=== PATIENT | female | born 1960 | race Hispanic/Latino ===

== ENCOUNTER 2022-01-26 07:13 | Emergency (ER) | payer SELFPAY ==
[2022-01-26] MEDS ORDERED: LEVALBUTEROL 1.25 MG/3 ML NEB ONE (07:47)
[2022-01-26 08:10] LABS: Absolute Lymphocytes (CBC) 2.7 K/uL (0.7-4.9); Lymphocytes % 33.6 % (15.3-44.8); MCV 99.5 fL (80-100); MPV 8.2 fL (7.6-11.3); RBC Red Blood Cell Count 4.22 M/uL (3.86-4.86)
--- NOTE | 2022-01-26 08:19 | RAD REPORT ---
EXAM DESCRIPTION: RAD - Chest Single View - 01/26/2022 8:09 am CLINICAL HISTORY: Cough COMPARISON: No comparisons FINDINGS: Lines: None. Lungs: No evidence of edema or pneumonia. Pleural: No significant pleural effusions or pneumothorax. Cardiac: The heart size is within normal limits. Bones: No acute fractures. Other: IMPRESSION: No acute cardiopulmonary disease.
[2022-01-26 08:27] LABS: Protime INR 0.95
[2022-01-26 08:29] LABS: Potassium 3.6 mmol/L (3.5-5.1); Troponin High Sensitivity 4.4 pg/mL (<58.9)
--- NOTE | 2022-01-26 09:03 | EDPHYS ---
Physician Documentation [facility] Name: Sharri Kiran Age: 61 yrs Sex: Female : 1960 Arrival Date: 01/26/2022 Time: 07:16 Bed 12 Private MD: ED Physician Ashok Tvaeras HPI: 01/26 07:44 This 61 yrs old Female presents to ER via Ambulatory with complaints of rn Shortness Of Breath. 07:44 The patient has shortness of breath with light activity. Onset: The symptoms/episode rn began/occurred 3 day(s) ago. Duration: The symptoms are continuous. The patient's shortness of breath is aggravated by exertion, light activity, supine position, walking. Associated signs and symptoms: Pertinent positives: productive cough, Pertinent negatives: chest pain, dizziness, fever, hemoptysis. Severity of symptoms: At their worst the symptoms were moderate in the emergency department the symptoms are unchanged. The patient has not experienced similar symptoms in the past. The patient has not recently seen a physician. Historical: - Allergies: 07:20 No Known Allergies; ss - Home Meds: 07:20 metoprolol tartrate 50 mg Oral tab 1 tab 2 times per day [Active]; ss - PMHx: 07:20 Hypertension; ss - PSHx: 07:20 Hystserectomy; ss - Immunization history:: Client reports receiving the 2nd dose of the Covid vaccine. - Social history:: Smoking status: Patient denies any tobacco usage or history of. - Family history:: not pertinent. - Hospitalizations: : No recent hospitalization is reported. ROS: 07:44 Constitutional: Negative for fever, chills, and weight loss, Eyes: Negative for injury, rn pain, redness, and discharge, Neck: Negative for injury, pain, and swelling, Cardiovascular: Negative for chest pain, palpitations, and edema, Respiratory: + cough and sob Abdomen/GI: Negative for abdominal pain, nausea, vomiting, diarrhea, and constipation, Back: Negative for injury and pain, MS/Extremity: Negative for injury and deformity, Skin: Negative for injury, rash, and discoloration, Neuro: Negative for headache, weakness, numbness, tingling, and seizure. Exam: 07:44 Constitutional: This is a well developed, well nourished patient who is awake, alert, rn and in no acute distress. Head/Face: Normocephalic, atraumatic. ENT: no stridor Cardiovascular: Regular rate and rhythm. No pulse deficits. Respiratory: + diffuse wheezing bilaterally, No increased work of breathing, no retractions or nasal flaring. Abdomen/GI: Soft, non-tender Skin: Warm, dry MS/ Extremity: Pulses equal, no cyanosis. Neuro: Awake and alert, GCS 15 09:46 ECG was reviewed by the Attending Physician. rn Vital Signs: 07:20 BP 131 / 82; Pulse 99; Resp 17; Temp 97.2(TE); Pulse Ox 95% on R/A; Pain 0/10; ss 08:20 BP 139 / 85; Pulse 100; Resp 18; Pulse Ox 97% on R/A; Pain 0/10; mb8 09:24 BP 118 / 72; Pulse 88; Resp 16; Temp 98; Pulse Ox 97% ; Pain 0/10; mb8 MDM: 07:23 Patient medically screened. rn 09:00 Differential diagnosis: Anxiety Reaction asthma, Bronchitis CHF exacerbation, Chronic rn Obstructive Pulmonary Disease Myocardial Infarction pulmonary edema, Pulmonary Embolism reactive airway disease. Data reviewed: vital signs, nurses notes, lab test result(s), EKG, radiologic studies, plain films, and as a result, I will discharge patient. Counseling: I had a detailed discussion with the patient and/or guardian regarding: the historical points, exam findings, and any diagnostic results supporting the discharge/admit diagnosis, lab results, radiology results, the need for outpatient follow up, to return to the emergency department if symptoms worsen or persist or if there are any questions or concerns that arise at home. Response to treatment: the patient's symptoms have markedly improved after treatment, and as a result, I will discharge patient. Special discussion: I discussed with the patient/guardian in detail that at this point there is no indication for admission to the hospital. It is understood, however, that if the symptoms persist or worsen the patient needs to return immediately for re-evaluation. Based on the history and exam findings, there is no indication for further emergent testing or inpatient evaluation. I discussed with the patient/guardian the need to see the primary care provider for further evaluation of the symptoms. I discussed with the patient/guardian the need to see the vp sales for further evaluation of the symptoms. ED course: Pt improved, feels better, no acute findings on blood/ecg/cxr. D-dimer neg. Will dc home with inhaler/abx/steroids. Pt has hx of sanding exposure for > 20 years as well as second hand smoke exposure. Could be COPD/fibrosis. Had this discussion with patient, will f/u with pulmonology and return precautions given/understood.. 01/26 07:35 Order name: BMP; Complete Time: 08:53 rn 01/26 07:35 Order name: Blood Culture Adult (2) rn 01/26 07:35 Order name: CBC with Diff; Complete Time: 08:27 rn 01/26 07:35 Order name: D-Dimer; Complete Time: 08:53 rn 01/26 07:35 Order name: NT PRO-BNP; Complete Time: 08:53 rn 01/26 07:35 Order name: PT-INR; Complete Time: 08:53 rn 01/26 07:35 Order name: XRAY Chest (1 view); Complete Time: 08:27 rn 01/26 07:35 Order name: Ptt, Activated; Complete Time: 08:53 rn 01/26 07:35 Order name: Troponin HS; Complete Time: 08:53 rn 01/26 07:35 Order name: EKG; Complete Time: 07:36 rn 01/26 07:35 Order name: Flu; Complete Time: 08:53 rn 01/26 07:35 Order name: SARS-COV-2 RT PCR (Document "Date of Onset" if Symptomatic); Complete Time: rn 08:53 01/26 07:35 Order name: Cardiac monitoring; Complete Time: 07:36 rn 01/26 07:35 Order name: EKG - Nurse/Tech; Complete Time: 08:12 rn 01/26 07:35 Order name: IV Saline Lock; Complete Time: 08:12 rn 01/26 07:35 Order name: Labs collected and sent; Complete Time: 08:12 rn 01/26 07:35 Order name: O2 Per Protocol; Complete Time: 08:12 rn 01/26 07:35 Order name: O2 Sat Monitoring; Complete Time: 08:12 rn EC:46 Rate is 97 beats/min. Rhythm is regular. QRS Mission is Normal. FL interval is normal. QRS rn interval is normal. QT interval is normal. No Q waves. T waves are Normal. No ST changes noted. Clinical impression: Normal ECG. Interpreted by me. Reviewed by me. Administered Medications: 07:45 Drug: Xopenex (levalbuterol) 1.25 mg Route: Inhalation; 8 09:03 Follow up: Response: No adverse reaction; Marked relief of symptoms 8 09:20 Drug: SOLU-Medrol (methylPrednisoLONE) 125 mg Route: IVP; Site: right forearm; 8 09:23 Follow up: Response: No adverse reaction mb8 Disposition Summary: 01/26/22 09:03 Discharge Ordered Location: Home rn Problem: new rn Symptoms: have improved rn Condition: Stable rn Diagnosis - Dyspnea, unspecified rn - Wheezing rn Followup: rn - With: Christoph Burrows MD - When: As needed - Reason: Recheck today's complaints, Re-evaluation by your physician Discharge Instructions: - Discharge Summary Sheet rn - Shortness of Breath, Adult rn Forms: - Medication Reconciliation Form rn - Thank You Letter rn - Antibiotic journeyman plumber - Prescription Opioid Use rn Prescriptions: - albuterol sulfate 90 mcg/actuation Inhalation HFA aerosol inhaler - inhale 2 puff by INHALATION route every 4-6 hours; 1 Inhaler; Refills: 0, rn Product Selection Permitted - Prednisone 20 mg Oral Tablet - take 3 tablets by ORAL route once daily for 5 days; 15 tablet; Refills: 0, rn Product Selection Permitted - Zithromax Z-Bradley 250 mg Oral Tablet - take 1 tablet by ORAL route as directed for 5 days Day 1 - take two (2) tablets rn one time. Day 2, 3, 4 , 5 take one (1) tablet once daily.; 6 tablet; Refills: 0, Product Selection Permitted Signatures: Dispatcher [employer] Ashok Guadarrama MD MD rn Smirch, Shelby, RN RN ss Bates, Michael RN RN mb8
--- NOTE | 2022-01-26 09:03 | ER ---
Nurse's Notes [facility] Name: Sharri Kiran Age: 61 yrs Sex: Female : 1960 Arrival Date: 01/26/2022 Time: 07:16 Bed 12 Private MD: Diagnosis: Dyspnea, unspecified;Wheezing Presentation: 01/26 07:20 Chief complaint: Patient states: Shortness of breath that has been ongoing for "a ss couple of weeks. Denies fever. Pt states that she has felt like she has had some chest congestion. Coronavirus screen: Client denies travel out of the [place] in the last 14 days. Client presents with at least one sign or symptom that may indicate coronavirus-19. Ebola Screen: Patient denies exposure to infectious person. Patient denies travel to an Ebola-affected area in the 21 days before illness onset. Initial Sepsis Screen: Does the patient meet any 2 criteria? No. Patient's initial sepsis screen is negative. Does the patient have a suspected source of infection? No. Patient's initial sepsis screen is negative. Risk Assessment: Do you want to hurt yourself or someone else? Patient reports no desire to harm self or others. Onset of symptoms was December 31, 2021. 07:20 Method Of Arrival: Ambulatory ss 07:20 Acuity: ALEXA 3 ss Triage Assessment: 07:29 Respiratory: Reports shortness of breath at rest on exertion cough that is mb8 non-productive, Onset: The symptoms/episode began/occurred per patient, last several weeks, the patient has mild shortness of breath. Historical: - Allergies: 07:20 No Known Allergies; ss - Home Meds: 07:20 metoprolol tartrate 50 mg Oral tab 1 tab 2 times per day [Active]; ss - PMHx: 07:20 Hypertension; ss - PSHx: 07:20 Hystserectomy; ss - Immunization history:: Client reports receiving the 2nd dose of the Covid vaccine. - Social history:: Smoking status: Patient denies any tobacco usage or history of. - Family history:: not pertinent. - Hospitalizations: : No recent hospitalization is reported. Screenin:28 Abuse screen: Denies threats or abuse. Denies injuries from another. Nutritional mb8 screening: No deficits noted. Tuberculosis screening: No symptoms or risk factors identified. Fall Risk None identified. Assessment: 07:27 General: Appears in no apparent distress. comfortable, Behavior is calm, cooperative, mb8 appropriate for age. Pain: Denies pain. Cardiovascular: No deficits noted. Respiratory: Airway is patent Respiratory effort is even, unlabored, Respiratory pattern is regular, symmetrical, Breath sounds with wheezes bilaterally. 08:15 Cardiovascular: Rhythm is. mb8 08:21 Cardiovascular: Rhythm is sinus rhythm. Respiratory: Reports cough that is productive. mb8 Vital Signs: 07:20 BP 131 / 82; Pulse 99; Resp 17; Temp 97.2(TE); Pulse Ox 95% on R/A; Pain 0/10; ss 08:20 BP 139 / 85; Pulse 100; Resp 18; Pulse Ox 97% on R/A; Pain 0/10; mb8 09:24 BP 118 / 72; Pulse 88; Resp 16; Temp 98; Pulse Ox 97% ; Pain 0/10; mb8 Vitals: 08:20 Cardiac Rhythm Assessment Regular Sinus rhythm. mb8 ED Course: 07:16 Patient arrived in ED. rg4 07:20 Arm band placed on left wrist. ss 07:22 Triage completed. ss 07:23 Ashok Taveras MD is Attending Physician. rn 07:23 Ishaan Mahmood RN is Primary Nurse. mb8 07:28 Patient has correct armband on for positive identification. Bed in low position. Call mb8 light in reach. Side rails up X2. Pulse ox on. NIBP on. 07:29 No provider procedures requiring assistance completed. mb8 07:50 COVID swab sent to lab. Flu and/or RSV swab sent to lab. X-ray(s) taken. mb8 07:52 Inserted saline lock: 20 gauge in right forearm, using aseptic technique. Blood mb8 collected. 07:52 First set of blood cultures drawn right arm. mb8 08:10 XRAY Chest (1 view) In Process Unspecified. EDMS 08:10 Second set of blood cultures drawn left arm. mb8 09:02 Christoph Burrows MD is Referral Physician. rn 09:23 IV discontinued, intact, bleeding controlled, No redness/swelling at site. Pressure mb8 dressing applied. Administered Medications: 07:45 Drug: Xopenex (levalbuterol) 1.25 mg Route: Inhalation; mb8 09:03 Follow up: Response: No adverse reaction; Marked relief of symptoms mb8 09:20 Drug: SOLU-Medrol (methylPrednisoLONE) 125 mg Route: IVP; Site: right forearm; mb8 09:23 Follow up: Response: No adverse reaction mb8 Medication: 07:28 VIS not applicable for this client. mb8 Outcome: 09:03 Discharge ordered by . rn 09:23 Discharged to home ambulatory. mb8 09:23 Condition: stable 09:23 Discharge instructions given to patient, Instructed on discharge instructions, follow up and referral plans. no drinking with medication, medication usage, Demonstrated understanding of instructions, follow-up care, medications, Prescriptions given X 3. 09:24 Patient left the ED. mb8 Signatures: Dispatcher [employer] EDMS Ashok Taveras MD MD rn Smirch, Shelby, RN RN ss Garcia, Rubi 4 Ishaan Mahmood RN RN mb8
[2022-01-26] MEDS ORDERED: METHYLPREDNISOLONE 125 MG INJ ONE (09:25)
[2022-01-26 10:02] VITALS: O2SAT 97
[2022-01-26 10:04] VITALS: BP 118/72; TEMP 98
--- NOTE | 2022-01-27 12:51 | EKG ---
Test Date: 2022-01-26 Test Time: 08:03:08 Schedule Announcer: SHAWN MEASUREMENT RESULTS: Intervals: Rate: 97 DE: 148 QRSD: 84 QT: 384 QTc: 487 Pelican: P: 32 DE: 148 QRS: 24 T: 40 INTERPRETIVE STATEMENTS: Normal sinus rhythm with sinus arrhythmia Normal ECG Compared to ECG 10/25/2004 11:40:00 No significant changes Electronically Signed On 01-27-22 12:49:38 CDT by Leonardo Puentes
== END 2022-01-26 09:24 | disposition home or self-care (01) ==
LOC: ER 07:13
DX: R06.00 Dyspnea, unspecified (principal); R06.2 Wheezing; Z20.822 Contact with and (suspected) exposure to COVID-19; I10 Essential (primary) hypertension
CPT/HCPCS: 36415; 71045; 80048; 83880; 84484; 85025; 85379; 85610; 85730; 87040; 87804; 93005; 96374; 99285; J2930; U0003

== ENCOUNTER 2023-11-27 20:36 | Emergency (ER) | payer SELFPAY ==
[2023-11-27 21:34] LABS: Absolute Basophils 0.1 K/uL (0-0.5); Absolute Eosinophils 0.5 K/uL (0-0.5); Absolute Lymphocytes (CBC) 4.2 K/uL (0.7-4.9); Absolute Monocytes 1.4 K/uL (0.1-1.3); Absolute Neutrophil 9.8 K/uL (1.8-8.0); Basophils % 0.8 % (0-1.3); Hematocrit 44.8 % (36.0-45.0); Hemoglobin 15.3 g/dL (12.0-15.0); Lymphocytes % 26.2 % (15.3-44.8); MCHC 34.2 g/dL (32.0-36.0); MCV 102.2 fL (80-100); MPV 8.9 fL (7.6-11.3); Monocytes % 8.9 % (3.3-12.3); Neutrophils % 61.1 % (41.7-73.7); Nucleated Red Blood Cells % 0.1 % (0-0); Platelets 261 thou/uL (152-406); RBC Red Blood Cell Count 4.38 M/uL (3.86-4.86); Red Cell Distribution Width 13.7 % (12.1-15.2)
[2023-11-27 21:41] LABS: Specific Gravity 1.016 (1.005-1.030); Sqamous Epithelial <5 /HPF (None Seen); Urine Bacteria 20-50 /HPF (<20); Urine Bilirubin NEGATIVE (Negative); Urine Blood Trace (Negative); Urine Clarity Extremely Turbid (Clear); Urine Color Light-Orange (Yellow); Urine Crystals Unidentified Few /HPF (None Seen); Urine Culture Reflex Order REFLEXED; Urine Glucose NEGATIVE (Negative); Urine Ketones NEGATIVE (Negative); Urine Microscopic Reflex YN ORDER UMIC; Urine Nitrite 2+ (Negative); Urine Protein 2+ (Negative); Urine Urobilinogen Normal (Normal); Urine WBC >50 /HPF (<5); Urine WBC Clump Few /HPF (None Seen); Urine pH 8.5 (5.0-7.0)
[2023-11-27 21:52] LABS: Albumin 3.8 g/dL (3.4-5.0); Albumin/Globulin Ratio 0.9 (1.1-1.8); Anion Gap 10.8 mEq/L (5.0-15.0); Bilirubin Total 0.3 mg/dL (0.2-1.0); Globulin 4.2 g/dL (2.3-3.5); Potassium 3.8 mEq/L (3.5-5.1)
[2023-11-27] MEDS ORDERED: FAMOTIDINE 20 MG/2 ML VIAL IV ONE (21:57)
[2023-11-27] MEDS ORDERED: ONDANSETRON 4 MG/2 ML VIAL ONE (21:57)
[2023-11-27] MEDS ORDERED: NA CHLORIDE 0.9% 1,000 ML ONE ×2 (21:57→23:11)
[2023-11-27] MEDS ORDERED: Meropenem 1000 MG/VIAL IV ONE (22:07)
[2023-11-27] MEDS ORDERED: NA CHLORIDE 0.9% 100 ML ONE (22:08)
[2023-11-27] MEDS ORDERED: levoFLOXacin 750 MG TAB ONE (22:32)
--- NOTE | 2023-11-27 22:38 | RAD REPORT ---
EXAM DESCRIPTION: CT - Abdomen Pelvis W Contrast - 11/27/2023 10:15 pm CLINICAL HISTORY: Abdominal pain COMPARISON: none. TECHNIQUE: Computed axial tomography of the abdomen pelvis was obtained. 100 cc Isovue-300 was admin istered intravenously. Oral contrast was not requested which limits evaluation of bowel and appendix All CT scans are performed using dose optimization technique as appropriate and may include automated exposure control or mA/KV adjustment according to patient size. FINDINGS: Mild fatty liver. Spleen, pancreas, adrenals and right kidney unremarkable. 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 Hysterectomy. No adnexal mass. Tiny umbilical hernia Bladder wall thickening with stranding in the adjacent fat. IMPRESSION: Bladder wall thickening with stranding in the adjacent fat probably indicating inflammat ion
--- NOTE | 2023-11-27 23:01 | ER ---
Nurse's Notes [facility] Name: Sharri Kiran Age: 63 yrs Sex: Female : 1960 Arrival Date: 11/27/2023 Time: 20:36 Bed 10 Private MD: Diagnosis: UTI/ Urinary tract infection, site not specified;Acute cystitis;Elevated white blood cell count Presentation: 11/26 21:03 Chief complaint: Patient states: c/o feeling of full bladder, urgency with little al5 output, frequency, and odorous urine x2 days. Coronavirus screen: Client denies travel out of the [place] in the last 14 days. At this time, the client does not indicate any symptoms associated with coronavirus-19. Ebola Screen: Patient denies travel to an Ebola-affected area in the 21 days before illness onset. No symptoms or risks identified at this time. Initial Sepsis Screen: Does the patient meet any 2 criteria? HR > 90 bpm. No. Patient's initial sepsis screen is negative. Does the patient have a suspected source of infection? No. Patient's initial sepsis screen is negative. Risk Assessment: Do you want to hurt yourself or someone else? Patient reports no desire to harm self or others. Onset of symptoms was November 25, 2023. 21:03 Method Of Arrival: Ambulatory al5 21:03 Acuity: ALEXA 3 al5 Triage Assessment: 21:06 General: Appears in no apparent distress. Behavior is calm, cooperative. Pain: al5 Complains of pain in bladder Pain currently is 8 out of 10 on a pain scale. Quality of pain is described as pressure, spasm Pain began 2-3 days ago. Is continuous, Alleviated by medications. Neuro: No deficits noted. Level of Consciousness is awake, alert, obeys commands, Oriented to person, place, time, situation, Speech is normal, Facial symmetry appears normal. Cardiovascular: Denies chest pain, shortness of breath, Patient's skin is warm and dry. Respiratory: No deficits noted. Airway is patent Respiratory effort is even, unlabored, Respiratory pattern is regular, symmetrical. Historical: - Allergies: 21:06 No Known Allergies; al5 - Home Meds: 21:05 metoprolol tartrate 50 mg Oral tab 1 tab 2 times per day [Active]; al5 - PMHx: 21:05 Hypertension; al5 - PSHx: 21:05 Hystserectomy; al5 - Immunization history:: Adult Immunizations up to date. - Infectious Disease History:: Denies. - Social history:: Smoking status: Patient denies any tobacco usage or history of. - Family history:: not pertinent. Screenin:19 [facility] ED Fall Risk Assessment (Adult) History of falling in the last 3 months, tl4 including since admission No falls in past 3 months (0 pts) Confusion or Disorientation No (0 pts) Intoxicated or Sedated No (0 pts) Impaired Gait No (0 pts) Mobility Assist Device Used No (0 pt) Altered Elimination No (0 pt) Score/Fall Risk Level 0 - 2 = Low Risk Oriented to surroundings, Maintained a safe environment, Educated pt \T\ family on fall prevention, incl call for assistance when getting out of bed, Assessed \T\ reinforced patient's understanding of fall precautions. Abuse screen: Denies threats or abuse. Denies injuries from another. Nutritional screening: No deficits noted. Tuberculosis screening: No symptoms or risk factors identified. Assessment: 22:14 General: Appears in no apparent distress. Behavior is calm, cooperative. Pain: tl4 Complains of pain in abdomen. Cardiovascular: Capillary refill < 3 seconds Patient's skin is warm and dry. Respiratory: Airway is patent Respiratory effort is even, unlabored, Respiratory pattern is regular, symmetrical, Breath sounds are clear bilaterally. GI: Bowel sounds present X 4 quads. Abd is soft and non tender. : Reports burning with urination, pain urgency, urinary frequency. EENT: No signs and/or symptoms were reported regarding the EENT system. Derm: No signs and/or symptoms reported regarding the dermatologic system. Musculoskeletal: No signs and/or symptoms reported regarding the musculoskeletal system. 22:47 Reassessment: No changes from previously documented assessment. Patient and/or family vc1 updated on plan of care and expected duration. Pain level reassessed. Patient is alert, oriented x 3, equal unlabored respirations, skin warm/dry/pink. 23:19 General: Pt discharge pending infusion of NS Bolus. vc1 Vital Signs: 21:03 BP 149 / 87; Pulse 116; Resp 18; Temp 98.9; Pulse Ox 97% on R/A; Weight 72.57 kg; al5 Height 5 ft. 1 in. ; Pain 8/10; 22:18 BP 134 / 85; Pulse 122; Resp 18; Pulse Ox 99% on R/A; tl4 23:20 BP 136 / 84; Pulse 115; Resp 17; Pulse Ox 99% ; vc1 11/27 00:13 BP 153 / 99; Pulse 106; Resp 18; Temp 98.6; Pulse Ox 94% ; vc1 11/26 21:03 Body Mass Index 30.23 (72.57 kg, 154.94 cm) al5 11/26 21:03 Pain Scale: Adult al5 ED Course: 11/26 20:38 Patient arrived in ED. mr 20:39 Alfie Nixon MD is Attending Physician. jeremias 21:05 Triage completed. al5 21:08 Arm band placed on right wrist. Patient placed in an exam room, on a stretcher. al5 21:27 Inserted saline lock: 20 gauge in left antecubital area, using aseptic technique. Blood rc3 collected. 21:28 CBC with Diff Sent. rc3 21:28 CMP Sent. rc3 21:28 Lipase Sent. rc3 21:28 Urinalysis w/ reflexes Sent. rc3 21:55 Td Davis, TRAVIS is Primary Nurse. tl4 22:17 CT Abd/Pelvis - IV Contrast Only In Process Unspecified. EDMS 22:19 Patient has correct armband on for positive identification. Bed in low position. Call tl4 light in reach. Side rails up X 1. Provided Education on: ed process, call espinoza. Client placed on continuous cardiac and pulse oximetry monitoring. NIBP monitoring applied. Door closed. Noise minimized. Moved to private room. 22:19 No provider procedures requiring assistance completed. tl4 22:59 Rakesh Robin MD is Referral Physician. [facility] 11/27 00:13 IV discontinued, intact, bleeding controlled, No redness/swelling at site. Pressure vc1 dressing applied. Administered Medications: 11/26 22:10 Drug: NS 0.9% IV 1000 ml IV at 1 bolus Per protocol; 1000 mL bolus Route: IV; Rate: 1 tl4 bolus; Site: left antecubital; 11/27 00:15 Follow up: Response: No adverse reaction; Marked relief of symptoms vc1 11/26 22:10 Drug: Famotidine IVP 20 mg IVP once; dilute with 10 mL 0.9% NaCl; give over 2 minutes tl4 Route: IVP; Infused Over: 2 mins; Site: left antecubital; 11/27 00:15 Follow up: Response: No adverse reaction; Marked relief of symptoms vc1 11/26 22:11 Drug: Ondansetron IVP 4 mg IVP once; over 2 minutes Route: IVP; Infused Over: 2 mins; tl4 Site: left antecubital; 11/27 00:15 Follow up: Response: No adverse reaction; Marked relief of symptoms vc1 11/26 22:30 Drug: Meropenem IV 1 grams IV at per protocol once; (mix in NS 100 mL) Route: IV; Rate: vc1 per protocol; Site: left antecubital; 23:00 Follow up: IV Status: Completed infusion; IV Intake: 100ml vc1 22:30 Drug: LevOfloxacin PO 750 mg PO once Route: PO; vc1 11/27 00:14 Follow up: Response: No adverse reaction; Marked relief of symptoms vc1 11/26 23:19 Drug: Phenazopyridine PO 200 mg PO once Route: PO; vc1 11/27 00:14 Follow up: Response: No adverse reaction; Marked relief of symptoms vc1 11/26 23:19 Drug: Cefdinir PO 600 mg PO once Route: PO; vc1 11/27 00:14 Follow up: Response: No adverse reaction; Marked relief of symptoms vc1 11/26 23:19 Drug: NS 0.9% IV 1000 ml IV at 1 bolus Per protocol; 1000 mL bolus Route: IV; Rate: 1 vc1 bolus; Site: left antecubital; 11/27 00:14 Follow up: IV Status: Completed infusion; IV Intake: 500ml vc1 Medication: 11/26 22:47 VIS not applicable for this client. vc1 Intake: 23:00 IV: 100ml; Total: 100ml. vc1 11/27 00:14 IV: 500ml; Total: 600ml. vc1 Outcome: 11/26 23:00 Discharge ordered by MD. mcdowell 11/27 00:13 Discharged to home ambulatory, vc1 Condition: good Discharge instructions given to patient, Instructed on discharge instructions, follow up and referral plans. medication usage, Demonstrated understanding of instructions, follow-up care, medications, Prescriptions given X 3, 00:14 Patient left the ED. vc1 Addendum: 12/01/2023 10:06 Addendum: Culture Results: Positive urine culture. No further action required. Other: a a5 Sensitive to Levofloxacin. . Signatures: Dispatcher [employer] Alfie Rodrigues MD MD cha Rivera Sara, [facility] Reg mr Lalito, Jada, RN RN aa5 Sahra Mane, RN RN vc1 Susan, Td, RN RN tl4 Arianna Weber3 Geraldine Krueger, RN RN al5
--- NOTE | 2023-11-27 23:01 | EDPHYS ---
Physician Documentation [facility] Name: Sharri Kiran Age: 63 yrs Sex: Female : 1960 Arrival Date: 11/27/2023 Time: 20:36 Bed 10 Private MD: MAT Physician Alfie Nixon HPI: 11/26 22:12 This 63 yrs old Female presents to ER via Ambulatory with complaints of jeremias Abdominal Pain, Urinary Problem. 22:12 The patient presents with abdominal pain in the lower abdomen. Onset: The jeremias symptoms/episode began/occurred 2 day(s) ago. The patient presents with urinary symptoms, dysuria, frequency, hesitancy. Onset: The symptoms/episode began/occurred 2 day(s) ago. Modifying factors: The symptoms are alleviated by the symptoms are aggravated by walking. Associated signs and symptoms: Pertinent positives: urinary frequency. Severity of symptoms: At their worst the symptoms were mild, moderate, in the emergency department the symptoms are unchanged. The patient is sexually active, reportedly has a single partner. The symptoms do not radiate. Historical: - Allergies: 21:06 No Known Allergies; al5 - Home Meds: 21:05 metoprolol tartrate 50 mg Oral tab 1 tab 2 times per day [Active]; al5 - PMHx: 21:05 Hypertension; al5 - PSHx: 21:05 Hystserectomy; al5 - Immunization history:: Adult Immunizations up to date. - Infectious Disease History:: Denies. - Social history:: Smoking status: Patient denies any tobacco usage or history of. - Family history:: not pertinent. ROS: 22:12 Constitutional: Negative for fever, chills, and weight loss, Eyes: Negative for injury, jeremias pain, redness, and discharge, ENT: Negative for injury, pain, and discharge, Neck: Negative for injury, pain, and swelling, Cardiovascular: Negative for chest pain, palpitations, and edema, Respiratory: Negative for shortness of breath, cough, wheezing, and pleuritic chest pain, Back: Negative for injury and pain, MS/Extremity: Negative for injury and deformity, Skin: Negative for injury, rash, and discoloration, Neuro: Negative for headache, weakness, numbness, tingling, and seizure, Psych: Negative for depression, anxiety, suicide ideation, homicidal ideation, and hallucinations, Allergy/Immunology: Negative for hives, rash, and allergies, Endocrine: Negative for neck swelling, polydipsia, polyuria, polyphagia, and marked weight changes, Hematologic/Lymphatic: Negative for swollen nodes, abnormal bleeding, and unusual bruising, 22:12 Abdomen/GI: Positive for abdominal pain, abdominal cramps, 22:12 : Positive for urinary symptoms, pelvic pain, small amounts, hematuria, burning with urination, difficulty urinating, Exam: 22:12 Constitutional: This is a well developed, well nourished patient who is awake, alert, jeremias and in no acute distress. Head/Face: Normocephalic, atraumatic. Eyes: Pupils equal round and reactive to light, extra-ocular motions intact. Lids and lashes normal. Conjunctiva and sclera are non-icteric and not injected. Cornea within normal limits. Periorbital areas with no swelling, redness, or edema. ENT: Nares patent. No nasal discharge, no septal abnormalities noted. Tympanic membranes are normal and external auditory canals are clear. Oropharynx with no redness, swelling, or masses, exudates, or evidence of obstruction, uvula midline. Mucous membranes moist. Neck: Trachea midline, no thyromegaly or masses palpated, and no cervical lymphadenopathy. Supple, full range of motion without nuchal rigidity, or vertebral point tenderness. No Meningismus. Chest/axilla: Normal chest wall appearance and motion. Nontender with no deformity. No lesions are appreciated. Respiratory: Lungs have equal breath sounds bilaterally, clear to auscultation and percussion. No rales, rhonchi or wheezes noted. No increased work of breathing, no retractions or nasal flaring. Back: No spinal tenderness. No costovertebral tenderness. Full range of motion. Female : Normal external genitalia. Skin: Warm, dry with normal turgor. Normal color with no rashes, no lesions, and no evidence of cellulitis. MS/ Extremity: Pulses equal, no cyanosis. Neurovascular intact. Full, normal range of motion. Neuro: Awake and alert, GCS 15, oriented to person, place, time, and situation. Cranial nerves II-XII grossly intact. Motor strength 5/5 in all extremities. Sensory grossly intact. Cerebellar exam normal. Normal gait. Psych: Awake, alert, with orientation to person, place and time. Behavior, mood, and affect are within normal limits. 22:12 Cardiovascular: Rate: tachycardic, actual rate is 116 bpm, Rhythm: regular, Pulses: Pulses are 4+ in bilateral radial, brachial, femoral, popliteal, posterior tibial and and dorsalis pedis arteries.. Heart sounds: normal, Edema: is not appreciated, JVD: is not appreciated, Vital Signs: 21:03 BP 149 / 87; Pulse 116; Resp 18; Temp 98.9; Pulse Ox 97% on R/A; Weight 72.57 kg; al5 Height 5 ft. 1 in. ; Pain 8/10; 22:18 BP 134 / 85; Pulse 122; Resp 18; Pulse Ox 99% on R/A; tl4 23:20 BP 136 / 84; Pulse 115; Resp 17; Pulse Ox 99% ; vc1 11/27 00:13 BP 153 / 99; Pulse 106; Resp 18; Temp 98.6; Pulse Ox 94% ; vc1 11/26 21:03 Body Mass Index 30.23 (72.57 kg, 154.94 cm) al 11/26 21:03 Pain Scale: Adult al MDM: 11/26 20:39 Patient medically screened. [facility] 22:52 Differential diagnosis: urinary tract infection, diverticulitis, Irritable bowel jeremias syndrome, non-specific abd pain, pancreatitis. Data reviewed: vital signs, nurses notes, old medical records, lab test result(s), EKG, radiologic studies, CT scan. Consideration of Admission/Observation Escalation of care including admission/observation considered. I considered the following discharge prescriptions or medication management in the emergency department Medications were administered in the Emergency Department. See MAR. Independent interpretation of the following test(s) in the Emergency Department CT Scan: My interpretation is ct abd/pel w/ iv. Test considered but Not performed: Ultrasound no abd usg. Care significantly affected by the following chronic conditions: Hypertension, Obesity. 11/26 20:43 Order name: CBC with Diff; Complete Time: 21:58 [facility] 11/26 20:43 Order name: CMP; Complete Time: 21:58 [facility] 11/26 20:43 Order name: Lipase; Complete Time: 21:58 [facility] 11/26 20:43 Order name: Urinalysis w/ reflexes; Complete Time: 21:58 [facility] 11/26 20:43 Order name: Urine Culture [facility] 11/26 20:43 Order name: CT Abd/Pelvis - IV Contrast Only; Complete Time: 23:02 [facility] 11/26 20:43 Order name: IV Saline Lock; Complete Time: : [facility] 11/26 20:43 Order name: Labs collected and sent; Complete Time: : [facility] Administered Medications: 22:10 Drug: NS 0.9% IV 1000 ml IV at 1 bolus Per protocol; 1000 mL bolus Route: IV; Rate: 1 tl4 bolus; Site: left antecubital; 11/27 00:15 Follow up: Response: No adverse reaction; Marked relief of symptoms vc1 11/26 22:10 Drug: Famotidine IVP 20 mg IVP once; dilute with 10 mL 0.9% NaCl; give over 2 minutes tl4 Route: IVP; Infused Over: 2 mins; Site: left antecubital; 11/27 00:15 Follow up: Response: No adverse reaction; Marked relief of symptoms vc1 11/26 22:11 Drug: Ondansetron IVP 4 mg IVP once; over 2 minutes Route: IVP; Infused Over: 2 mins; tl4 Site: left antecubital; 11/27 00:15 Follow up: Response: No adverse reaction; Marked relief of symptoms vc11/26 22:30 Drug: Meropenem IV 1 grams IV at per protocol once; (mix in NS 100 mL) Route: IV; Rate: vc1 per protocol; Site: left antecubital; 23:00 Follow up: IV Status: Completed infusion; IV Intake: 100ml vc 22:30 Drug: LevOfloxacin PO 750 mg PO once Route: PO; vc11/27 00:14 Follow up: Response: No adverse reaction; Marked relief of symptoms vc11/26 23:19 Drug: Phenazopyridine PO 200 mg PO once Route: PO; vc1 11/27 00:14 Follow up: Response: No adverse reaction; Marked relief of symptoms vc11/26 23:19 Drug: Cefdinir PO 600 mg PO once Route: PO; vc1 11/27 00:14 Follow up: Response: No adverse reaction; Marked relief of symptoms vc11/26 23:19 Drug: NS 0.9% IV 1000 ml IV at 1 bolus Per protocol; 1000 mL bolus Route: IV; Rate: 1 vc1 bolus; Site: left antecubital; 11/27 00:14 Follow up: IV Status: Completed infusion; IV Intake: 500ml vc1 Disposition Summary: 11/27/23 23:00 Discharge Ordered Notes: Location: Home jeremias Problem: new jeremias Symptoms: have improved jeremias Condition: Stable jeremias Diagnosis - UTI/ Urinary tract infection, site not specified jeremias - Acute cystitis jeremias - Elevated white blood cell count jeremias Followup: jeremias - With: Private Physician - When: 2 - 3 days - Reason: Recheck today's complaints, Continuance of care, Re-evaluation by your physician Followup: jeremias - With: Rakesh Robin MD - When: 2 - 3 days - Reason: Recheck today's complaints, Re-evaluation by your physician Discharge Instructions: - Discharge Summary Sheet jeremias - Dysuria jeremias - Urinary Tract Infection, Adult jeremias - Urinary Tract Infection, Adult, [id number] Forms: - Medication Reconciliation Form jeremias - Antibiotic Education jeremias - Prescription Opioid Use jeremias - Patient Portal Instructions [facility] - Leadership Thank You Letter [facility] Prescriptions: - cefdinir 300 mg Oral capsule - take 1 capsule ORAL route every 12 hours; 14 capsule; Refills: 0, Product [facility] Selection Permitted - Pyridium 200 mg Oral Tablet - take 1 tablet ORAL route every 8 hours for 3 days; 9 tablet; Refills: 0, [facility] Product Selection Permitted - levofloxacin 500 mg Oral tablet - take 1 tablet ORAL route once daily for 7 days; 7 tablet; Refills: 0, Product [facility] Selection Permitted Signatures: Dispatcher [employer] Alfie Rodrigues MD MD cha Calcote, Vanessa RN RN vc1 Td Davis RN RN tl4 Geraldine Krueger RN RN al5 Corrections: (The following items were deleted from the chart) 11/26 20:44 20:44 Abdomen Pelvis W [id number] ordered. JAMES RAMIREZ
[2023-11-27] MEDS ORDERED: CEFDINIR 300 MG CAP PO ONE (23:10)
[2023-11-27] MEDS ORDERED: PHENAZOPYRIDINE 100MG TAB PO ONE (23:10)
[2023-11-28 01:02] VITALS: BP 153/99; TEMP 98.6; O2SAT 94
== END 2023-11-28 00:14 | disposition home or self-care (01) ==
LOC: ER 20:36
DX: N39.0 Urinary tract infection, site not specified (principal); D72.829 Elevated white blood cell count, unspecified
CPT/HCPCS: 36415; 74177; 80053; 81001; 83690; 85025; 87077; 87086; 87088; 87186; 96361; 96365; 96375; 99284; J2185; J2405; J7030; Q9967